=== PATIENT | female | born 1930 | race Caucasian/White ===

== ENCOUNTER → 2017-05-01 | Outpatient (CLI) | payer OTHER, MEDICARE ==
[~2017-05-01] VITALS: Ht 170.2 cm; Wt 55.3 kg
[~2017-05-01] MED LIST: ALTACE5 M1 PO; APAP500 PO; CALCIUM 600 +1 EAC1 PO; CARDIZEM CD180 MG PO; COUMADIN 2 MG TA2 M1 PO; COUMADIN 3 MG TA3 MG PO; CRESTOR5 MG PO; ELIQUIS2.5 MG PO; FLEXI JOINT TA1 EAC1 PO; LEVOTHYROXINE0.05 MG PO; TRAMADOL 50 MG50 MG PO; ULTRAM 50MG TAB50 MG PO; VITAMIN D-32000 UNIT PO; VITCB500GO PO
[2017-05-01 10:00] VITALS: BP 138/85
== END ==
LOC: PAIN 07:06
DX: M19.042 Primary osteoarthritis, left hand (principal); M19.041 Primary osteoarthritis, right hand; Z79.899 Other long term (current) drug therapy

== ENCOUNTER → 2018-01-06 | Outpatient (CLI) | payer OTHER, MEDICARE ==
[~2018-01-06] VITALS: Ht 170.2 cm; Wt 53.5 kg
--- NOTE | ~2018-01-06 | HPC ---
[facility] [place] [address] PAIN MANAGEMENT CONSULTATION Name: CHRIST UMANZOR Room #: REG CHRISTOPHER ReeceLeticiaJennie.#: [id number] Admission: 01/06/18 Attend Phys: Jordon Schmidt MD Discharge: Date of : [birth year] Report #: [id number] THIS REPORT FOR: //name// CC: Jeffery Schmidt DATE OF SERVICE: 01/06/2018 Followup visit for osteoarthritis. The patient returns to pain clinic today and would like me to inject her fingers. I have on 2 previous occasions injected her proximal interphalangeal joints on several digits providing, per report, up to 6 months of really quite outstanding pain relief. This has been a consistent response with both of her previous injections, and I have agreed today to repeat. She describes her pain as 5 on average and is exacerbated by the use of her hands, opening lids of bottles, writing, quilting and doing the things that she enjoys. After injection, she has been able to resume those activities. MEDICATIONS: All medication are reviewed and reconciled from the electronic medical record. There have been no changes. She uses Tylenol and tramadol as needed for pain, prescribed by primary care physician, Dr. Jeffery Roberson. Her PQRS review shows that she has osteoarthritis in multiple joints, particularly in her hands. She has always been slender with a BMI of 18.5 with no significant change. This is her normal weight. Blood pressure is stable and she is not on treatment. Blood pressure 134/71, heart rate 81, respirations 16. She is a fall risk due to vertigo and dizziness. She had a fall in the summer that caused dislocation of her patella and uses a cane when walking long distance. We discussed the importance of maintaining good stability with assistance device if necessary, particularly due to the fact that she is on a blood thinner, Eliquis. I do not provide medications for her. There is no opioid discussion today. IMPRESSION: Osteoarthritis involving the proximal interphalangeal joints. PROCEDURE: Injection of 6 total joints of the hand, all proximal interphalangeal joints involving the thumb, index, third and fourth finger of the right hand and the index finger and third finger of the left hand. DESCRIPTION OF PROCEDURE: The skin was prepped widely with ChloraPrep. We began first on the right. A 25-gauge needle was utilized and gently advanced into the lateral joint space on the right aforementioned joints. I used fluoroscopic guidance to assist in the placement. Each joint was injected with roughly 0.25 mL of 0.5% bupivacaine and 6-7 mg of triamcinolone. Pressure [address] [address] PAIN MANAGEMENT CONSULTATION Name: CHRIST UMANZOR Room #: REG [facility] Chon#: [id number] Admission: 01/06/18 Attend Phys: Jordon Schmidt MD Discharge: Date of : [birth year] Report #: [id number] applied after each injection. I then turned attention to the left hand where I injected the second and third fingers. She tolerated the procedure well. The total injection included 40 mg divided amongst the 6 joints and each joint injected with 0.25 mL of 0.5% bupivacaine. She tolerated the procedure well. Pain score on admission was 5 and 0 at discharge. I will see her in the future as needed. <ELECTRONICALLY SIGNED> By: Jordon Schmidt MD 02/03/18 1408 [id number] 1331 Jordon Schmidt MD /nt
[2018-01-06 10:04] VITALS: BP 134/71
== END | disposition home or self-care (01) ==
LOC: PAIN 07:14
DX: M19.042 Primary osteoarthritis, left hand (principal); M19.041 Primary osteoarthritis, right hand; Z79.899 Other long term (current) drug therapy; Z87.891 Personal history of nicotine dependence